=== PATIENT | female | born 1960 | race Caucasian/White ===

== ENCOUNTER 2017-07-13 08:47 | Emergency (ER) | payer OTHER ==
[~2017-07-13] VITALS: Ht 167.6 cm; Wt 59.0 kg
[2017-07-13] MEDS ORDERED: TIROSINT112 MCG PO (11:02)
== END 2017-07-13 14:29 | disposition home or self-care (01) ==
LOC: ER 08:47
DX: Z11.3 Encounter for screening for infections with a predominantly sexual mode of transmission (principal); R10.2 Pelvic and perineal pain; Y08.89XA Assault by other specified means, initial encounter